=== PATIENT | female | born 1980 | race Two or more races ===

== ENCOUNTER 2017-04-17 10:29 | Emergency (ER) | payer OTHER ==
[~2017-04-17] VITALS: Ht 154.9 cm; Wt 97.5 kg
[~2017-04-17 10:29] MED LIST: ASA81 MG PO; SIMVASTATIN40 MG
[2017-04-17] MEDS ORDERED: NORFLEX100MG PO (14:06)
[2017-04-17] MEDS ORDERED: KETO10TA2 PO (14:06)
== END 2017-04-17 14:16 | disposition home or self-care (01) ==
LOC: ER 10:29
DX: R30.0 Dysuria (principal); R10.31 Right lower quadrant pain

== ENCOUNTER 2017-05-23 15:28 | Outpatient (CLI) | payer OTHER ==
[~2017-05-23 15:28] MED LIST changes: +KETO10TA2 PO; +NORFLEX100MG PO
== END 2017-05-23 16:54 | disposition home or self-care (01) ==
LOC: SONOGRAMA 15:28
DX: M54.5 Low back pain (principal); M54.2 Cervicalgia; N20.0 Calculus of kidney; R30.0 Dysuria

== ENCOUNTER 2018-07-25 07:35 | Outpatient (CLI) | payer OTHER | END 2018-07-25 07:37 | disposition home or self-care (01) | LOC: TOM 07:35 | DX: R10.2 Pelvic and perineal pain (principal) ==

== ENCOUNTER 2018-07-29 11:05 | Outpatient (CLI) | payer OTHER | END 2018-07-29 11:22 | disposition home or self-care (01) | LOC: EKG 11:05 → LAB 11:05 | DX: Z01.811 Encounter for preprocedural respiratory examination (principal); Z01.810 Encounter for preprocedural cardiovascular examination ==

== ENCOUNTER 2018-08-09 06:37 | Day surgery (SDC) | payer OTHER | END 2018-08-09 14:50 | disposition home or self-care (01) | LOC: CIR.AMB 06:37 | DX: N84.0 Polyp of corpus uteri (principal) ==

== ENCOUNTER 2019-03-03 13:34 | Emergency (ER) | payer OTHER ==
[~2019-03-03] VITALS: Ht 154.9 cm; Wt 96.6 kg
== END 2019-03-03 18:24 | disposition home or self-care (01) ==
LOC: ER 13:34
DX: B33.8 Other specified viral diseases (principal); B96.0 Mycoplasma pneumoniae [M. pneumoniae] as the cause of diseases classified elsewhere

== ENCOUNTER 2020-01-14 13:11 | Emergency (ER) | payer OTHER ==
[~2020-01-14] VITALS: Ht 154.9 cm; Wt 94.8 kg
[2020-01-14] MEDS ORDERED: ORPHENADRINE C100 MG PO (16:43)
[2020-01-14] MEDS ORDERED: GUAIFENESIN200 MG PO (16:43)
[2020-01-14] MEDS ORDERED: PEPCID AC20 MG PO (16:43)
== END 2020-01-14 17:15 | disposition home or self-care (01) ==
LOC: ER 13:11
DX: J06.9 Acute upper respiratory infection, unspecified (principal); R09.81 Nasal congestion; B34.9 Viral infection, unspecified; K29.80 Duodenitis without bleeding; K29.70 Gastritis, unspecified, without bleeding; M54.5 Low back pain

== ENCOUNTER 2020-04-01 13:43 | Outpatient (CLI) | payer OTHER ==
[~2020-04-01 13:43] MED LIST changes: +GUAIFENESIN200 MG PO; +ORPHENADRINE C100 MG PO; +PEPCID AC20 MG PO
== END 2020-04-01 13:45 | disposition home or self-care (01) ==
LOC: SONOGRAMA 13:43 → MAMO-SONO 13:45
DX: N91.1 Secondary amenorrhea (principal)

== ENCOUNTER 2022-05-02 09:18 | Outpatient (CLI) | payer OTHER | END 2022-05-02 09:34 | disposition home or self-care (01) | LOC: MRI 09:18 | PROVIDERS: ATTEND General Practice | DX: M25.561 Pain in right knee (principal) | CPT/HCPCS: 73718 ==

== ENCOUNTER 2022-10-26 10:23 | Outpatient (CLI) | payer OTHER | END 2022-10-26 10:39 | disposition home or self-care (01) | LOC: MAMO-SONO 10:23 | PROVIDERS: ATTEND General Practice | DX: R05.9 Cough, unspecified (principal); E78.5 Hyperlipidemia, unspecified; Z12.31 Encounter for screening mammogram for malignant neoplasm of breast; D64.9 Anemia, unspecified; R00.0 Tachycardia, unspecified; M25.561 Pain in right knee ==

== ENCOUNTER 2023-04-30 08:04 | Outpatient (CLI) | payer OTHER | END 2023-04-30 08:17 | disposition home or self-care (01) | LOC: RAD 08:04 | PROVIDERS: ATTEND Specialist | DX: E78.5 Hyperlipidemia, unspecified (principal); N20.9 Urinary calculus, unspecified; G89.11 Acute pain due to trauma ==

== ENCOUNTER → 2023-10-30 | Emergency (ER) | payer OTHER ==
[~2023-10-30] VITALS: Ht 154.9 cm; Wt 97.1 kg
[~2023-10-30] MED LIST changes: +KETOROLAC TROMETHAMINE 60 MG VIAL IM ONE; +KETOROLAC TROMETHAMINE 60 MG VIAL IM STA; +ORPHENADRINE CITRATE 100 MG TABLET PO STA
== END | disposition home or self-care (01) ==
LOC: ER 09:22
DX: M62.838 Other muscle spasm (principal); Z88.8 Allergy status to other drugs, medicaments and biological substances

== ENCOUNTER 2024-02-01 09:41 | Outpatient (CLI) | payer OTHER ==
[~2024-02-01 09:41] MED LIST changes: -KETOROLAC TROMETHAMINE 60 MG VIAL IM ONE; -KETOROLAC TROMETHAMINE 60 MG VIAL IM STA; -ORPHENADRINE CITRATE 100 MG TABLET PO STA
== END 2024-02-01 09:43 | disposition home or self-care (01) ==
LOC: RAD 09:41
DX: M25.562 Pain in left knee (principal)

== ENCOUNTER 2024-04-14 10:04 | Outpatient (CLI) | payer OTHER | END 2024-04-14 10:10 | disposition home or self-care (01) | LOC: MAMO-SONO 10:04 | PROVIDERS: ATTEND Specialist | DX: D50.9 Iron deficiency anemia, unspecified (principal); Z12.31 Encounter for screening mammogram for malignant neoplasm of breast; R16.0 Hepatomegaly, not elsewhere classified; K76.0 Fatty (change of) liver, not elsewhere classified; E66.9 Obesity, unspecified; E78.5 Hyperlipidemia, unspecified ==